=== PATIENT | male | born 1975 | race Caucasian/White ===

== ENCOUNTER 2017-05-06 18:04 | Emergency (ER) | payer SELFPAY ==
[2017-05-06 19:49] VITALS: BP 118/92; PULSE 80; RESP 22; O2SAT 97; BMI 28.7
--- NOTE | 2017-05-06 19:53 | XR_ITS ---
XR chest 2V HISTORY: ITS.REASON: COUGH ORDERING PHYSICIAN: Sarai Merrill PATIENT AGE: 41 years COMPARISON: 02/19/2017 FINDINGS: The cardiomediastinal silhouette and pulmonary vascularity are within normal limits. There is mild hyperinflation with attenuation of peripheral pulmonary vessels suggesting COPD/small airway disease. Patchy infiltrate is noted in the left perihilar region.. No acute bony abnormalities. IMPRESSION: Mild COPD with left perihilar infiltrate/pneumonia
--- NOTE | 2017-05-06 20:03 | HMH.EDUTC ---
[facility] [place]: Bronchitis Disposition: Home, Self-Care Condition on Discharge: Good Instructions: Cough, Guaifenesin Additional Instructions: * Monitor Temp. Tylenol and/or Ibuprofen as needed. ER if fever is no less than 101 despite alternating Tylenol and Ibuprofen * Encourage fluids, water, Gatorade, powerade, pedialyte if infant/toddler/or child * Warm salt water gargles for throat irritation *Warm fluids *Sore throat lozenges *Sleep elevated *humidifier or vaporizer Lots of rest Increase fluids, water, Gatorade, powerade Follow up IMMEDIATELY for new or worsening of symptoms OR no noticeable improvement over the next 48-72 hours. 911 immediately for any life threatening symptoms such as chest pain or difficulty breathing Prescriptions: Azithromycin [Z-Gregg 250mg Tab] 250 mg PO UD DOSE PK #6 tab Benzonatate [Tessalon Perle 100mg Cap] 100 mg PO TID #20 cap predniSONE [Prednisone 20mg Tab] 20 mg PO BID #10 tab Referrals: Raul Jerry MD [Primary Care Provider] - Time of Disposition: 11:50 Medical Decision Making Vital Signs: 05/06/17 19:49 Pulse Rate [Right Radial] 80 Respiratory Rate 22 Blood Pressure [Right Arm] 118/92 Blood Pressure Mean [Right Arm] 100 Blood Pressure Source [Right Arm] Automatic Cuff Blood Pressure Position [Right Arm] Sitting 02 Sat by Pulse Oximetry 97 Oxygen Delivery Method Room Air Orders (Tests/Meds): ED MEDICATIONS Discontinued Medications Generic Name Dose Route Start Last Admin Trade Name Freq PRN Reason Stop Dose Admin Albuterol/Ipratropium 3 ml 05/06/17 20:21 05/06/17 20:57 Duoneb 3ml Neb 05/06/17 20:22 3 ml ONCE ONE Administration - Mitchel Inquiry Pt receiving controlled substance: No Mitchel was queried for this patient: No [facility] [place] - General Stated complaint: POSSIBLE FLU Mode of Arrival: Ambulatory Source of Information: Patient Limitations: No Limitations Description of Symptoms (Recalled from Triage Doc. by RN): COUGH FOR SEVERAL WEEKS TURNED INTO BRONCHITIS HAS HX OF EMPHYSEMA HEENT Symptoms (Recalled from RN notes): No Resp Symptoms (Recalled from RN notes): Yes (COUGH) Skin Symptoms (Recalled from RN notes): No MS Symptoms (Recalled from RN notes): No Functional Status (Recalled from RN notes): NA - History of Present Illness Provider Complaint: Patient state that he has been sick on and off for several weeks now State that he has had bronchitis State that he is having cough and congestion State that cough is productive at times and he wanted to come in and get checked and make sure she didn't have the flu - Related Data Previous Rx's Medication Instructions Recorded Azithromycin [Z-Gregg 250mg Tab] 250 mg PO UD DOSE PK #6 tab 05/06/17 Benzonatate [Tessalon Perle 100mg 100 mg PO TID #20 cap 05/06/17 Cap] predniSONE [Prednisone 20mg 20 mg PO BID #10 tab 05/06/17 Tab] Allergies Allergy/AdvReac Type Severity Reaction Status Date / Time peanut [PEANUT] Allergy Severe THROAT Verified 05/06/17 19:55 SWELLING - Worker's Comp Is this a Worker's Comp case?: No Is this an [place] Worker's Comp?: No Is this a [place] Worker's Comp?: No H History Medical History: Denies:: Cancer, Diabetes Mellitus Type 1, Diabetes Mellitus Type 2, MRSA Amputation: No Fractures: No - *Social History Smoking Status: Current every day smoker Tobacco Type: cigarettes Alcohol Intake: never - Psychiatric History Expresses thoughts of harming self/others: None Suicide Plan Description: No Plan - ENT Reports sore throat - Respiratory Reports cough Physical Exam - General General appearance: alert, in no apparent distress - ENT ENT exam: Present: normal exam, normal oropharynx, mucous membranes moist, TM's normal bilaterally, normal external ear exam - Respiratory Respiratory exam: Present: normal lung sounds bilaterally. Absent: respiratory distress - Cardiovascu
--- NOTE | 2017-05-06 20:12 | HMH.EDUTC ---
[facility] [place]: Bronchitis Disposition: Home, Self-Care Condition on Discharge: Good Instructions: Cough, Guaifenesin Additional Instructions: * Monitor Temp. Tylenol and/or Ibuprofen as needed. ER if fever is no less than 101 despite alternating Tylenol and Ibuprofen * Encourage fluids, water, Gatorade, powerade, pedialyte if infant/toddler/or child * Warm salt water gargles for throat irritation *Warm fluids *Sore throat lozenges *Sleep elevated *humidifier or vaporizer Lots of rest Increase fluids, water, Gatorade, powerade Follow up IMMEDIATELY for new or worsening of symptoms OR no noticeable improvement over the next 48-72 hours. 911 immediately for any life threatening symptoms such as chest pain or difficulty breathing Prescriptions: Azithromycin [Z-Gregg 250mg Tab] 250 mg PO UD DOSE PK #6 tab Benzonatate [Tessalon Perle 100mg Cap] 100 mg PO TID #20 cap predniSONE [Prednisone 20mg Tab] 20 mg PO BID #10 tab Referrals: Raul Jerry MD [Primary Care Provider] - Time of Disposition: 21:13 Medical Decision Making Vital Signs: 05/06/17 19:49 Pulse Rate [Right Radial] 80 Respiratory Rate 22 Blood Pressure [Right Arm] 118/92 Blood Pressure Mean [Right Arm] 100 Blood Pressure Source [Right Arm] Automatic Cuff Blood Pressure Position [Right Arm] Sitting 02 Sat by Pulse Oximetry 97 Oxygen Delivery Method Room Air Orders (Tests/Meds): ED MEDICATIONS Discontinued Medications Generic Name Dose Route Start Last Admin Trade Name Freq PRN Reason Stop Dose Admin Albuterol/Ipratropium 3 ml 05/06/17 20:21 05/06/17 20:57 Duoneb 3ml Neb IH 05/06/17 20:22 3 ml ONCE ONE Administration ORDERS Category Date Time Status Chest XR 2 view (NOT portable) [XR chest 2V] Stat Exams 05/06/17 19:53 Taken - Radiology Data #1 Image(s): Chest Image Reviewed: Yes I reviewed the patient's radiology results Preliminary Findings: No Infiltrates Seen (Discussed with Dr Jerry) Discussed with Dr Jerry, possible Bronchitis - Mitchel Inquiry Pt receiving controlled substance: No Mitchel was queried for this patient: No [facility] [place] - General Stated complaint: POSSIBLE FLU Mode of Arrival: Ambulatory Source of Information: Patient Limitations: No Limitations Description of Symptoms (Recalled from Triage Doc. by RN): COUGH FOR SEVERAL WEEKS TURNED INTO BRONCHITIS HAS HX OF EMPHYSEMA HEENT Symptoms (Recalled from RN notes): No Resp Symptoms (Recalled from RN notes): Yes (COUGH) Skin Symptoms (Recalled from RN notes): No MS Symptoms (Recalled from RN notes): No Functional Status (Recalled from RN notes): NA - History of Present Illness Provider Complaint: Patient states that he has been having cough and congestion that has continued to get worse over the last few days Onset (ago): day(s) (4) Severity: mild Severity scale (1-10): 3 Relieving factors: none Exacerbating factors: none Treatments prior to arrival: none - Related Data Previous Rx's Medication Instructions Recorded Azithromycin [Z-Gregg 250mg Tab] 250 mg PO UD DOSE PK #6 tab 05/06/17 Benzonatate [Tessalon Perle 100mg 100 mg PO TID #20 cap 05/06/17 Cap] predniSONE [Prednisone 20mg 20 mg PO BID #10 tab 05/06/17 Tab] Allergies Allergy/AdvReac Type Severity Reaction Status Date / Time peanut [PEANUT] Allergy Severe THROAT Verified 05/06/17 19:55 SWELLING - Worker's Comp Is this a Worker's Comp case?: No Is this an [facility] Worker's Comp?: No Is this a [place] Worker's Comp?: No [facility] History Medical History: Denies:: Cancer, Diabetes Mellitus Type 1, Diabetes Mellitus Type 2, MRSA Amputation: No Fractures: No - *Social History Smoking Status: Current every day smoker Tobacco Type: cigarettes Alcohol Intake: never - Psychiatric History Expresses thoughts of harming self/others: None Suicide Plan Description: No Plan - ENT Reports sore throat - Respiratory Repo
--- NOTE | 2017-05-06 20:19 | ED_ITS ---
[facility] [place] Clinical Impression: Bronchitis Disposition: Home, Self-Care Condition on Discharge: Good Instructions: Cough, Guaifenesin Additional Instructions: * Monitor Temp. Tylenol and/or Ibuprofen as needed. ER if fever is no less than 101 despite alternating Tylenol and Ibuprofen * Encourage fluids, water, Gatorade, powerade, pedialyte if infant/toddler/or child * Warm salt water gargles for throat irritation *Warm fluids *Sore throat lozenges *Sleep elevated *humidifier or vaporizer Lots of rest Increase fluids, water, Gatorade, powerade Follow up IMMEDIATELY for new or worsening of symptoms OR no noticeable improvement over the next 48-72 hours. 911 immediately for any life threatening symptoms such as chest pain or difficulty breathing Prescriptions: Azithromycin [Z-Gregg 250mg Tab] 250 mg PO UD DOSE PK #6 tab Benzonatate [Tessalon Perle 100mg Cap] 100 mg PO TID #20 cap predniSONE [Prednisone 20mg Tab] 20 mg PO BID #10 tab Referrals: Raul Jerry MD [Primary Care Provider] - Time of Disposition: 21:13 Medical Decision Making Vital Signs: 05/06/17 19:49 Pulse Rate [Right Radial] 80 Respiratory Rate 22 Blood Pressure [Right Arm] 118/92 Blood Pressure Mean [Right Arm] 100 Blood Pressure Source [Right Arm] Automatic Cuff Blood Pressure Position [Right Arm] Sitting 02 Sat by Pulse Oximetry 97 Oxygen Delivery Method Room Air Orders (Tests/Meds): ED MEDICATIONS Discontinued Medications Generic Name Dose Route Start Last Admin Trade Name Freq PRN Reason Stop Dose Admin Albuterol/Ipratropium 3 ml 05/06/17 20:21 05/06/17 20:57 Duoneb 3ml Neb IH 05/06/17 20:22 3 ml ONCE ONE Administration ORDERS Category Date Time Status Chest XR 2 view (NOT portable) [XR chest 2V] Stat Exams 05/06/17 19:53 Taken - Radiology Data #1 Image(s): Chest Image Reviewed: Yes I reviewed the patient's radiology results Preliminary Findings: No Infiltrates Seen (Discussed with Dr Jerry) Discussed with Dr Jerry, possible Bronchitis - Mitchel Inquiry Pt receiving controlled substance: No Mitchel was queried for this patient: No [facility] [place] - General Stated complaint: POSSIBLE FLU Mode of Arrival: Ambulatory Source of Information: Patient Limitations: No Limitations Description of Symptoms (Recalled from Triage Doc. by RN): COUGH FOR SEVERAL WEEKS TURNED INTO BRONCHITIS HAS HX OF EMPHYSEMA HEENT Symptoms (Recalled from RN notes): No Resp Symptoms (Recalled from RN notes): Yes (COUGH) Skin Symptoms (Recalled from RN notes): No MS Symptoms (Recalled from RN notes): No Functional Status (Recalled from RN notes): NA - History of Present Illness Provider Complaint: Patient states that he has been having cough and congestion that has continued to get worse over the last few days Onset (ago): day(s) (4) Severity: mild Severity scale (1-10): 3 Relieving factors: none Exacerbating factors: none Treatments prior to arrival: none - Related Data Previous Rx's Medication Instructions Recorded Azithromycin [Z-Gregg 250mg Tab] 250 mg PO UD DOSE PK #6 tab 05/06/17 Benzonatate [Tessalon Perle 100mg 100 mg PO TID #20 cap 05/06/17 Cap] predniSONE [Prednisone 20mg 20 mg PO BID #10 tab 05/06/17 Tab] Allergies
== END 2017-05-06 21:16 | disposition home or self-care (01) ==
PROVIDERS: Emergency Provider Nurse Practitioner; Family Provider Emergency Medicine; PCP Emergency Medicine
DX: J20.9 Acute bronchitis, unspecified (principal); F17.210 Nicotine dependence, cigarettes, uncomplicated
CPT/HCPCS: 71046; 99201

== ENCOUNTER → 2017-06-13 15:14 | Outpatient (REF) | payer BC, SELFPAY ==
[2017-06-13 17:37] LABS: Alanine Aminotransferase 52 U/L (12-78); Albumin Level 4.2 gm/dL (3.4-5.0); Albumin/Globulin Ratio 1.2 (1.1-1.8); Alkaline Phosphatase 88 U/L (46-116); Anion Gap 14.6 mEq/L (5-15); Aspartate Amino Transferase 22 U/L (15-37); Bilirubin,Total 0.3 mg/dL (0.2-1.0); Blood Urea Nitrogen 11 mg/dL (7-18); Calcium 9.5 mg/dL (8.5-10.1); Carbon Dioxide 27 mmol/L (21.0-32.0); Chloride 105 mmol/L (98-107); Chol/HDL Ratio 2.7 (1-3.5); Cholesterol 168 mg/dL (140-200); Creatinine,Serum 0.95 mg/dL (0.70-1.30); Estimated Glomerular Filt Rate 87 ml/min (>60); Free T4 (Free Thyroxine) 1.01 ng/dl (0.76-1.46); GFR (African American) 105 ML/MIN (>60); Globulin 3.6 gm/dl (1.3-3.2); Glucose 95 mg/dL (74-106); HDL Cholesterol 62 mg/dL (27-67); LDL Cholesterol 84 mg/dL (0-130); Potassium 4.6 mmoL/L (3.5-5.1); Sodium 142 mmol/L (136-145); Total Protein,Serum 7.8 gm/dL (6.4-8.2); Triglycerides 108 mg/dL (30-200); VLDL Cholesterol 22 mg/dL (0-40)
[2017-06-13 18:48] LABS: Hemoglobin A1C 5.5 % (0.0-7.0)
[2017-06-13 19:11] LABS: Basophils # 0.1 K/mm3 (0-0.2); Basophils % 0.7 % (0.1-2.0); Eosinophils # 0.2 K/mm3 (0.0-0.4); Eosinophils % 3.1 % (0.1-12.0); Hematocrit 49.7 % (42.0-52.0); Hemoglobin 16.1 g/dL (14.1-18.0); Lymphocytes # 1.6 K/mm3 (0.7-4.5); Lymphocytes % 21.9 K/mm3 (10-50); Mean Corpuscular HGB Conc 32.4 g/dL (31.8-35.4); Mean Corpuscular Hemoglobin 29.6 pg (27.0-31.2); Mean Corpuscular Volume 91.2 fl (80-94); Mean Platelet Volume 8.5 fl (7.4-10.4); Monocytes # 0.8 K/mm3 (0.1-1.0); Monocytes % 11.2 % (1.7-9.3); Neutrophils # 4.6 K/mm3 (1.8-7.8); Neutrophils % 63.2 % (37.0-80.0); Platelet Count 235 K/mm3 (142-424); Red Blood Count 5.45 M/mm3 (4.60-6.20); Red Cell Distribution Width 12.9 % (11.5-17.5); White Blood Count 7.3 K/mm3 (4.8-10.8)
[2017-06-15 21:19] LABS: Testosterone,Total 432 ng/dL (264-916)
[2017-06-16 08:56] LABS: Vitamin D 25 Hydroxy 15.8 ng/mL (30.0-100.0)
== END ==
LOC: LAB 15:14
PROVIDERS: Visit Provider Nurse Practitioner Family
DX: R53.83 Other fatigue (principal); Z79.899 Other long term (current) drug therapy
CPT/HCPCS: 80053; 80061; 82652; 83036; 84403; 84439; 84443; 85025

== ENCOUNTER → 2018-03-13 15:37 | Outpatient (CLI) | payer BC, SELFPAY | PROVIDERS: PCP Nurse Practitioner Family; Visit Provider Nurse Practitioner Family | DX: G47.30 Sleep apnea, unspecified (principal); G47.10 Hypersomnia, unspecified; R06.83 Snoring | CPT/HCPCS: 95806 ==

== ENCOUNTER → 2018-06-16 09:40 | Outpatient (POV) | payer BC, SELFPAY | PROVIDERS: Visit Provider Internal Medicine | DX: Z00.00 Encounter for general adult medical examination without abnormal findings (principal) ==

== ENCOUNTER → 2019-11-12 13:16 | Outpatient (CLI) | payer BC, SELFPAY ==
[2019-11-13 14:17] LABS: Covid-19 Nasal PCR Sendout Lex Not Detected
== END ==
PROVIDERS: PCP Emergency Medicine; Visit Provider Emergency Medicine
DX: Z03.818 Encounter for observation for suspected exposure to other biological agents ruled out (principal)
CPT/HCPCS: U0004

== ENCOUNTER → 2020-03-18 07:58 | Outpatient (CLI) | payer BC, SELFPAY ==
[2020-03-18 08:54] LABS: Basophils # 0.1 K/mm3 (0-0.2); Basophils % 0.9 % (0.1-2.0); Eosinophils # 0.5 K/mm3 (0.0-0.4); Eosinophils % 6.1 % (0.1-12.0); Hematocrit 49.2 % (42.0-52.0); Hemoglobin 16.4 g/dL (14.1-18.0); Lymphocytes # 1.9 K/mm3 (0.7-4.5); Lymphocytes % 24.5 % (10-50); Mean Corpuscular HGB Conc 33.4 g/dL (31.8-35.4); Mean Corpuscular Hemoglobin 29.9 pg (27.0-31.2); Mean Corpuscular Volume 89.5 fl (80-94); Mean Platelet Volume 8.1 fl (7.4-10.4); Monocytes # 0.7 K/mm3 (0.1-1.0); Monocytes % 9.3 % (1.7-9.3); Neutrophils # 4.6 K/mm3 (1.8-7.8); Neutrophils % 59.1 % (37.0-80.0); Platelet Count 229 K/mm3 (142-424); Red Cell Distribution Width 13.1 % (11.5-17.5); White Blood Count 7.7 K/mm3 (4.8-10.8)
[2020-03-18 10:02] LABS: Chloride 104 mmol/L (98-107); Potassium 4.4 mmoL/L (3.5-5.1); Sodium 143 mmol/L (136-145)
[2020-03-18 10:04] LABS: Alanine Aminotransferase 32 U/L (12-78); Alkaline Phosphatase 79 U/L (38-126); Aspartate Amino Transferase 37 U/L (17-59); Bilirubin,Total 0.9 mg/dl (0.2-1.3); Blood Urea Nitrogen 12 mg/dl (9-20); Estimated Glomerular Filt Rate 81 ml/min (>60); GFR (African American) 98 ML/MIN (>60)
[2020-03-18 10:05] LABS: Albumin Level 4.7 g/dl (3.5-5.0); Albumin/Globulin Ratio 1.3 (1.1-1.8); Anion Gap 13.4 mEq/L (5-15); Carbon Dioxide 30 mmol/L (22.0-30.0); Chol/HDL Ratio 2.7 (1-3.5); Cholesterol 162 mg/dl (140-200); Globulin 3.5 g/dL (1.3-3.2); Glucose 92 mg/dl (74-100); HDL Cholesterol 60 mg/dl (40-60); Total Protein,Serum 8.2 g/dl (6.3-8.2); Triglycerides 85 mg/dl (30-150); VLDL Cholesterol 17 mg/dL (0-40)
[2020-03-18 10:16] LABS: Direct LDL Cholesterol 61.08 mg/dL (100-129)
[2020-03-18 10:22] LABS: T4 (Thyroxine) 9.8 ug/dl (5.53-11.0)
[2020-03-18 10:36] LABS: Thyroid Stimulating Hormone 1.23 uIU/mL (0.465-4.68)
[2020-03-18 11:38] LABS: Hemoglobin A1C 5.3 % (4.0-6.0)
[2020-03-18 11:52] LABS: 25-OH Vitamin D, Total 27.9 ng/mL (30-100)
[2020-03-20 19:43] LABS: Testosterone,Free 4.9 pg/mL (6.8-21.5)
== END ==
PROVIDERS: Visit Provider Nurse Practitioner Family
DX: R53.83 Other fatigue (principal); E55.9 Vitamin D deficiency, unspecified; E29.1 Testicular hypofunction
CPT/HCPCS: 36415; 80053; 80061; 82306; 83036; 84402; 84436; 84443; 85025

== ENCOUNTER 2020-04-04 20:55 | Emergency (ER) | payer BC, SELFPAY ==
[2020-04-04 21:00] VITALS: BP 120/73; PULSE 78; RESP 20; TEMP 36.8; O2SAT 99; BMI 29.6
--- NOTE | 2020-04-04 21:14 | HMH.EDUTC ---
[facility] [place] Clinical Impression: Bronchitis Disposition: Home, Self-Care Condition on Discharge: Good Instructions: DI for Acute Bronchitis, Azithromycin Additional Instructions: ? Start antibiotic today. Be sure to complete entire prescription even if feeling better ? Monitor temp. Tylenol every 4 hours as needed and / or ibuprofen every 6 hours as needed ( As long as your primary care physician has told you that it ok to take both. For fever/aches/pains ER if no less than 101 despite Tylenol or Motrin ? Humidifier/vaporizer or hot steamy shower ? Inhaler every 4-6 hours as needed like we discussed. If unsure how to use it, ask pharmacist to demonstrate how. Should help open airways and improve cough, wheezing, and shortness of breath ? Mucinex during the day for your cough and cough suppressant only at night. Be sure to drink lots of water. Insurance may not cover a prescriptions for mucinex. *Start steroid tomorrow. Helps with inflammation therefore, cough and wheezing. Follow directions on the package. Reviewed side effects. Patient reports taking them before. Follow up IMMEDIATELY for new or worsening of symptoms OR no noticeable improvement over the next 48-72 hours. 911 immediately for any life threatening symptoms such as chest pain or difficulty breathing Prescriptions: predniSONE [Prednisone 20mg Tab] 20 mg PO BID #10 tab Transmission Status: Received by [facility] Azithromycin [Z-Gregg 250mg Tab] 250 mg PO DIRECTED #6 tab Transmission Status: Received by [facility] Referrals: Raul Jerry MD [Primary Care Provider] - As needed Time of Disposition: 21:32 Medical Decision Making - Mitchel Inquiry Pt receiving controlled substance: No Mitchel was queried for this patient: No Vital Signs: 04/04/20 21:00 04/04/20 21:31 Temperature 98.3 F 98.3 F Temperature Source Oral Pulse Rate 78 Pulse Rate [Right Brachial] 78 Respiratory Rate 20 20 Blood Pressure 120/73 Blood Pressure [Right Arm] 120/73 Blood Pressure Mean [Right Arm] 88 Blood Pressure Source [Right Arm] Automatic Cuff Blood Pressure Position [Right Arm] Sitting 02 Sat by Pulse Oximetry 99 Oxygen Delivery Method Room Air Orders (Tests/Meds): ED MEDICATIONS Discontinued Medications Generic Name Dose Route Start Last Admin Trade Name Freq PRN Reason Stop Dose Admin Ceftriaxone Sodium 1 gm 12/01/20 21:15 04/04/20 21:28 Ceftriaxone 1gm Vial IM 04/04/20 21:16 1 gm ONCE ONE Administration Protocol Lidocaine HCl 0 ml 04/04/20 21:15 04/04/20 21:28 Lidocaine 1% 5ml Pf Vial IM 04/04/20 21:16 2.1 ml ONCE ONE Administration Methylprednisolone Sodium Succinate 125 mg 04/04/20 21:15 04/04/20 21:28 Methylprednisolone Sod Succ 125mg Vial IM 04/04/20 21:16 125 mg ONCE ONE Administration Medical Decision Narrative: Discussed chest xray with patient and he declined State that he frequently gets bronchitis and has inhalers at home States that he would return for chest xray and further examination if medication didnt help Denies known exposure to COVID [facility] [place] - General Stated complaint: SOB Time Seen by Provider: 04/04/20 21:14 Mode of Arrival: Ambulatory Source of Information: Patient Limitations: No Limitations Description of Symptoms (Recalled from Triage Doc. by RN): PATIENT C/O SOA AND PRODUCTIVE COUGH WITH WHITE SPUTUM X 1 WEEK. STATES THE SOA BECAME WORSE TONIGHT HEENT Symptoms (Recalled from RN notes): No Resp Symptoms (Recalled from RN notes): Yes Skin Symptoms (Recalled from RN notes): No MS Symptoms (Recalled from RN notes): No Functional Status (Recalled from RN notes): WNL - History of Present Illness Provider Complaint: Patient state that he has a history of Asthma and bronchitits and state that he has felt it getting worse State that he feels like he was having some drainage into his chest State that he felt the burning sensation when
[2020-04-04 21:31] VITALS: BP 120/73; PULSE 78; RESP 20; TEMP 36.8; O2SAT 99
== END 2020-04-04 21:37 | disposition home or self-care (01) ==
PROVIDERS: Emergency Provider Nurse Practitioner; PCP Emergency Medicine
DX: J20.9 Acute bronchitis, unspecified (principal); J44.0 Chronic obstructive pulmonary disease with (acute) lower respiratory infection; F17.210 Nicotine dependence, cigarettes, uncomplicated; F41.8 Other specified anxiety disorders; Z79.899 Other long term (current) drug therapy
CPT/HCPCS: 96372; 99201

== ENCOUNTER → 2020-04-11 16:02 | Outpatient (CLI) | payer BC, SELFPAY ==
--- NOTE | 2020-04-11 16:07 | XR_ITS ---
PROCEDURE: XR CHEST 2V CLINICAL HISTORY: SOA Shortness of air COMPARISON: CR CXR CHEST(2 VIEWS-NOT PORTABLE) from 02/19/2017 CR CXR2V XR chest 2V from 05/06/2017 CR XR CHEST 2V from 02/09/2019 FINDINGS: The cardiomediastinal silhouette and pulmonary vascularity are within normal limits. The lungs are clear without infiltrates, suspicious nodules, or pleural effusions. No acute bony abnormalities. IMPRESSION: No acute findings. Dictated by: Stanley Carter MD 04/11/2020 16:31 Stanley Carter MD in [place] 04/11/2020 16:31
== END ==
PROVIDERS: PCP Emergency Medicine; Visit Provider Nurse Practitioner Family
DX: R07.9 Chest pain, unspecified (principal)
CPT/HCPCS: 71046

== ENCOUNTER → 2020-11-09 11:52 | Outpatient (CLI) | payer BC, SELFPAY | PROVIDERS: Visit Provider Urology | DX: E29.1 Testicular hypofunction (principal) | CPT/HCPCS: 36415; 84402; 84403 ==

== ENCOUNTER → 2021-04-03 12:30 | Outpatient (CLI) | payer BC, SELFPAY ==
--- NOTE | 2021-04-04 10:14 | PC.NURSE ---
called pt, pt answered, states pt is asleep. Stated I would call back later. Pt states if you are calling about his covid swab he has looked at his portal already, he knows he positive.
--- NOTE | 2021-04-04 12:11 | PC.NURSE ---
notified of positive COVID test results at this time, reports had reviewed on pt portal prior
== END ==
PROVIDERS: PCP Emergency Medicine; Visit Provider Nurse Practitioner
DX: U07.1 COVID-19 (principal)
CPT/HCPCS: C9803; U0003; U0005

== ENCOUNTER → 2021-06-01 15:58 | Outpatient (CLI) | payer BC, SELFPAY ==
[2021-06-01 16:01] LABS: MANUAL DIFFERENTIAL MANUAL DIFFERENTIAL (MANUAL DIFF)
[2021-06-01 17:14] LABS: Alanine Aminotransferase 36 U/L (12-78); Alkaline Phosphatase 65 U/L (38-126); Aspartate Amino Transferase 40 U/L (17-59); Bilirubin,Direct 0.1 mg/dl (0.0-0.4); Bilirubin,Indirect 0.2 mg/dL (0.0-0.9); Bilirubin,Total 0.3 mg/dl (0.2-1.3); Bilirubin,Unconjugated 0.2 mg/dL (0.0-1.1); Total Protein,Serum 7.9 g/dl (6.3-8.2)
[2021-06-01 18:16] LABS: Basophils # 0.2 K/mm3 (0-0.2); Basophils % 2.1 % (0.1-2.0); Eosinophils # 0.4 K/mm3 (0.0-0.4); Eosinophils % 4.2 % (0.1-12.0); Hematocrit 49.9 % (42.0-52.0); Hemoglobin 16.4 g/dL (14.1-18.0); Lymphocytes # 2.2 K/mm3 (0.7-4.5); Lymphocytes % 24.8 % (10-50); Mean Corpuscular HGB Conc 32.8 g/dL (31.8-35.4); Mean Corpuscular Hemoglobin 30.7 pg (27.0-31.2); Mean Corpuscular Volume 93.6 fl (80-94); Monocytes # 0.6 K/mm3 (0.1-1.0); Monocytes % 6.8 % (1.7-9.3); Neutrophils # 5.5 K/mm3 (1.8-7.8); Neutrophils % 62.2 % (37.0-80.0); Platelet Count 235 K/mm3 (142-424); Red Blood Count 5.33 M/mm3 (4.60-6.20); Red Cell Distribution Width 13.6 % (11.5-17.5); White Blood Count 8.9 K/mm3 (4.8-10.8)
[2021-06-01 21:33] LABS: Eosinophils % 2 % (0-3); Lymphocytes % 14 % (10-50); Monocytes % 1 % (2-9); Neutrophils % 80 % (42-76); Platelet Estimate Normal; RBC Morphology Normal; Total Cells Counted 100
[2021-06-03 08:17] LABS: Estradiol 7.9 pg/mL (7.6-42.6)
[2021-06-08 11:12] LABS: Testosterone, Total, LC/MS 489.6 ng/dL (264.0-916.0); Testosterone,Free 2.8 pg/mL (6.8-21.5)
== END ==
PROVIDERS: Visit Provider Urology
DX: E29.1 Testicular hypofunction (principal)
CPT/HCPCS: 36415; 80076; 82670; 84402; 84403; 85007; 85014; 85018; 85048; 85049